=== PATIENT | male | born 1985 | race Caucasian/White ===

== ENCOUNTER 2019-01-09 01:25 | Emergency (ER) | payer OTHER ==
[~2019-01-09] VITALS: Ht 180.3 cm; Wt 85.3 kg
[2019-01-09] MEDS ORDERED: DUI500 PO (05:43)
[2019-01-09] MEDS ORDERED: KETO10TA2 PO ×2 (05:44)
== END 2019-01-09 06:05 | disposition home or self-care (01) ==
LOC: ER 01:25
DX: L72.3 Sebaceous cyst (principal); L08.89 Other specified local infections of the skin and subcutaneous tissue